=== PATIENT | male | born 1950 | race Caucasian/White ===

== ENCOUNTER 2017-06-27 13:56 | Observation (INO) | payer OTHER ==
[2017-06-27] MEDS ORDERED: NS 1,000 ML IV ONE (14:46)
[2017-06-27] MEDS ORDERED: ONDANSETRON 4 MG/2 ML VIAL IVP ONE (14:46)
--- NOTE | 2017-06-27 14:50 | EDPHY ---
H & P Stated Complaint: black tarry stool yesterday Time Seen by Provider: 06/27/17 14:39 HPI/ROS: CHIEF COMPLAINT: Black stool and lightheadedness HISTORY OF PRESENT ILLNESS: Patient is a 67-year-old man with history of Parkinson's as well as chronic back and abdominal pain on NSAIDs who comes to the emergency department complaining of black tarry stool last night . No fever. He had a post micturition syncope 2 days ago. He denies chest pain or shortness of breath. He has had a mild increase in his abdominal pain over the last week. He is not on an antacids. His primary is Dr. Pendleton and he is had a colonoscopy by Dr. Almeida. He did have a PE several years ago but only took blood thinners for 6 months. REVIEW OF SYSTEMS: Constitutional: denies: chills, fever, recent illness, recent injury EENTM: denies: blurred vision, double vision, nose congestion Respiratory: denies: cough, shortness of breath Cardiac: denies: chest pain, irregular heart rate, lightheadedness, palpitations Gastrointestinal/Abdominal: See HPI Genitourinary: denies: dysuria, frequency, hematuria, pain Musculoskeletal: See HPI Skin: denies: lesions, rash, jaundice, bruising Neurological: denies: headache, numbness, paresthesia, tingling, dizziness, weakness Hematologic/Lymphatic: denies: blood clots, easy bleeding, easy bruising Immunologic/allergic: denies: HIV/AIDS, transplant EXAM: GENERAL: Well-appearing, well-nourished and in no acute distress. HEAD: Atraumatic, normocephalic. EYES: Pupils equal round and reactive to light, extraocular movements intact, sclera anicteric, conjunctiva are normal. ENT: TMs normal, nares patent, oropharynx clear without exudates. Moist mucous membranes. NECK: Normal range of motion, supple without lymphadenopathy or JVD. LUNGS: Breath sounds clear to auscultation bilaterally and equal. No wheezes rales or rhonchi. HEART: Regular rate and rhythm without murmurs, rubs or gallops. ABDOMEN: Soft, nontender, normoactive bowel sounds. No guarding, no rebound. No masses appreciated. BACK: No CVA tenderness, no spinal tenderness, step-offs or deformities EXTREMITIES: Normal range of motion, no pitting or edema. No clubbing or cyanosis. NEUROLOGICAL: Significant tremor with intention, Cranial nerves II through XII grossly intact. Normal speech, normal gait. 5/5 strength, normal movement in all extremities, normal sensation PSYCH: Normal SKIN: Warm, dry, normal turgor, no visible rashes or lesions. Source: Patient Exam Limitations: No limitations - Personal History Tetanus Vaccine Date: >10 YRS - Medical/Surgical History Hx Asthma: No Hx Chronic Respiratory Disease: No Hx Diabetes: No Hx Cardiac Disease: No Hx Renal Disease: No Hx Cirrhosis: No Hx Alcoholism: No Hx HIV/AIDS: No Hx Splenectomy or Spleen Trauma: No Other PMH: parkinsons. chronic bk issues. PE - Family History Significant Family History: No pertinent family hx - Social History Smoking Status: Never smoked Alcohol Use: Sober Drug Use: None Constitutional: Initial Vital Signs Temperature (C) 37.0 C 06/27/17 14:01 Heart Rate 78 06/27/17 14:01 Respiratory Rate 16 06/27/17 14:01 Blood Pressure 98/70 L 06/27/17 14:01 O2 Sat (%) 98 06/27/17 14:01 O2 Delivery Mode Room Air Allergies/Adverse Reactions: phenol Allergy (Severe, Verified 06/27/17 17:38) Other-Enter Comments Gipniqm-Zxs-Mnc Reductase Inhibitor Allergy (Severe, Verified 06/27/17 17:39) Other-Enter Comments iodine [Iodine] Allergy (Intermediate, Verified 11/27/10 12:30) EAT TOO MUCH FISH, RASH (PIMPLES ON BACK) CHOCOLATE Allergy (Intermediate, Uncoded 11/27/10 12:29) PIMPLES ON BACK 2 DAYS AFTER EATING Home Medications: Medication Instructions Recorded Aspirin EC [Aspirin EC 81 mg (*)] 81 mg PO DAILY@1200 06/27/17 Baclofen [Baclofen 20 mg (*)] 20 mg PO 08,12,21 06/27/17 Carbidopa/Levodopa 25/100Mg 1 tab PO TID PRN 06/27/17 [Sinemet 25/100 MG (*)] Carbidopa/Levodopa [Rytary ER 1 - 2 each PO HS PRN 06/27/17 48.75 mg-195 mg Cap] Carbidopa/Levodopa [Rytary ER 2 each PO DAILY@1900 06/27/17 48.75 mg-195 mg Cap] Carbidopa/Levodopa [Rytary ER 3 each PO 0630,1100,1530 06/27/17 48.75 mg-195 mg Cap] Cholecalciferol Vit D3 [Vitamin D3 5,000 units PO DAILY 06/27/17 (*)] Dicyclomine [Bentyl 10 MG (*)] 10 mg PO QID PRN 06/27/17 Gabapentin [Neurontin 300 MG (*)] 300 - 600 mg PO HS 06/27/17 Gabapentin [Neurontin 300 MG (*)] 300 mg PO 08,12 06/27/17 Herbals/Supplements -Info Only 1 ea PO DAILY 06/27/17 Ibuprofen [Motrin (*)] 200 - 600 mg PO HS PRN 06/27/17 Lidocaine [Lidocare] 1 each TP DAILY 06/27/17 Linaclotide [Linzess] 290 mcg PO DAILY 06/27/17 Meloxicam 15 mg PO DAILY 06/27/17 Niacin [Niacin 500 mg (*)] 1,000 mg PO DAILY@1200 06/27/17 Niacin [Niacin 500 mg (*)] 500 mg PO 08,18 06/27/17 [place]-3 Fatty Acids [Fish Oil 1000 1,000 mg PO 08,18 06/27/17 mg (*)] [place]-3 Fatty Acids [Fish Oil 1000 2,000 mg PO DAILY@1200 06/27/17 mg (*)] Polyethylene Glycol 3350 [Miralax 8.5 - 34 gm PO DAILY PRN 06/27/17 17 gm (*)] Propylene Glycol/Peg 400 [Systane 1 - 2 drops OP Q2 PRN 06/27/17 Ultra 0.4-0.3% Eye Drp] Rotigotine [Neupro] 1 patch TP DAILY@22006/27/17 clonazePAM [Klonopin (*)] 0.25 mg PO 08,21 06/27/17 Medical Decision Making - Diagnostics EKG Interpretation: An EKG obtained and was read and documented in trace view. Please see trace view for full reading and report. Sinus rhythm, no acute ischemic changes ED Course/Re-evaluation: 3:20 p.m. we discussed the lab results. Patient is significantly anemic. He is no longer lightheaded after IV fluids. He has been typed and crossed and been started on Protonix. 3:30 a.m. I discussed the case with Dr. Ramírez who will admit the medical service. I will also page is gastrologist. 4:30 p.m. I discussed the case with Dr. Roberth Brizuela who will text the gastrologist on-call here to notify to consult. Differential Diagnosis: Partial list of the Differential diagnosis considered include but were not limited to; peptic ulcer disease, upper GI bleed and although unlikely based on the history and physical exam, I also considered lower GI bleed, hemorrhoid, perforation, ischemia. Critical Care Time: Critical care time spent by me, Dr. Medina exclusive with this patient was 35 minutes, exclusive of the PA time exclusive of procedures. The organ system that was at risk was gastrointestinal and I gave IV fluids, type and cross, consultation and admission to prevent worsening of the patient's condition - Data Points Laboratory Results: Laboratory Results 06/27/17 14:53 06/27/17 14:50 06/27/17 06/27/17 06/27/17 15:00 14:53 14:53 WBC 4.55 10^3/uL 10^3/uL (3.80-9.50) RBC 3.79 10^6/uL L 10^6/uL (4.40-6.38) Hgb 13.0 g/dL L g/dL (13.7-17.5) Hct 36.5 % L % (40.0-51.0) MCV 96.3 fL fL (81.5-99.8) MCH 34.3 pg H pg (27.9-34.1) MCHC 35.6 g/dL g/dL (32.4-36.7) RDW 11.9 % % (11.5-15.2) Plt Count 188 10^3/uL 10^3/uL (150-400) MPV 9.2 fL fL (8.7-11.7) Neut % (Auto) 55.2 % % (39.3-74.2) Lymph % (Auto) 29.2 % % (15.0-45.0) [place] % (Auto) 9.9 % % (4.5-13.0) Eos % (Auto) 4.6 % % (0.6-7.6) Baso % (Auto) 0.7 % % (0.3-1.7) Nucleat RBC Rel Count 0.0 % % (0.0-0.2) Absolute Neuts (auto) 2.51 10^3/uL 10^3/uL (1.70-6.50) Absolute Lymphs (auto) 1.33 10^3/uL 10^3/uL (1.00-3.00) Absolute Monos (auto) 0.45 10^3/uL 10^3/uL (0.30-0.80) Absolute Eos (auto) 0.21 10^3/uL 10^3/uL (0.03-0.40) Absolute Basos (auto) 0.03 10^3/uL 10^3/uL (0.02-0.10) Absolute Nucleated RBC 0.00 10^3/uL 10^3/uL (0-0.01) Immature Gran % 0.4 % % (0.0-1.1) Immature Gran # 0.02 10^3/uL 10^3/uL (0.00-0.10) PT 14.4 SEC SEC (12.0-15.0) INR 1.10 (0.83-1.16) APTT 29.7 SEC SEC (23.0-38.0) Sodium Potassium Chloride Carbon Dioxide Anion Gap BUN Creatinine Estimated GFR Glucose Calcium Total Bilirubin Conjugated Bilirubin Unconjugated Bilirubin AST ALT Alkaline Phosphatase Total Protein Albumin Lipase Stool Occult Bld Scrn Patient ABO/Rh O POSITIVE Antibody Screen NEGATIVE 06/27/17 06/27/17 14:50 14:50 WBC RBC Hgb Hct MCV MCH MCHC RDW Plt Count MPV Neut % (Auto) Lymph % (Auto) [place] % (Auto) Eos % (Auto) Baso % (Auto) Nucleat RBC Rel Count Absolute Neuts (auto) Absolute Lymphs (auto) Absolute Monos (auto) Absolute Eos (auto) Absolute Basos (auto) Absolute Nucleated RBC Immature Gran % Immature Gran # PT INR APTT Sodium 140 mEq/L mEq/L (135-145) Potassium 4.4 mEq/L mEq/L (3.5-5.2) Chloride 98 mEq/L mEq/L (97-110) Carbon Dioxide 29 mEq/l mEq/l (22-31) Anion Gap 13 mEq/L mEq/L (8-16) BUN 24 mg/dL H mg/dL (7-23) Creatinine 0.7 mg/dL mg/dL (0.7-1.3) Estimated GFR > 60 Glucose 86 mg/dL mg/dL (70-100) Calcium 9.2 mg/dL mg/dL (8.5-10.4) Total Bilirubin 0.8 mg/dL mg/dL (0.1-1.4) Conjugated Bilirubin 0.5 mg/dL mg/dL (0.0-0.5) Unconjugated Bilirubin 0.3 mg/dL mg/dL (0.0-1.1) AST 29 IU/L IU/L (17-59) ALT 23 IU/L IU/L (21-72) Alkaline Phosphatase 68 IU/L IU/L (38-126) Total Protein 6.6 g/dL g/dL (6.3-8.2) Albumin 3.8 g/dL g/dL (3.5-5.0) Lipase 211 IU/L IU/L (23-300) Stool Occult Bld Scrn POSITIVE H (NEGATIVE) Patient ABO/Rh Antibody Screen Medications Given: Discontinued Medications Sodium Chloride (Ns) 1,000 mls @ 0 mls/hr IV EDNOW ONE; Wide Open PRN Reason: Protocol Stop: 06/27/17 14:47 Last Admin: 06/27/17 14:55 Dose: 1,000 mls Ondansetron HCl (Zofran) 4 mg IVP EDNOW ONE Stop: 06/27/17 14:47 Last Admin: 06/27/17 14:55 Dose: 4 mg Departure - Departure Disposition: Home, Routine, Self-Care Clinical Impression: Upper GI bleed Condition: Fair
--- NOTE | 2017-06-27 15:03 | CPEKG ---
Heart Rate: 78 RR Interval: 769 P-R Interval: 148 QRSD Interval: 90 QT Interval: 356 QTC Interval: 406 P [place]: 72 QRS [place]: 79 T Wave [place]: 66 EKG Severity - NORMAL ECG - EKG Impression: SINUS RHYTHM Electronically Signed By: Brendan Medina 27-Jun-2017 15:05:00
[2017-06-27 15:13] LABS: PLATELET COUNT 188 10^3/uL (150-400)
[2017-06-27 15:17] LABS: INR 1.1 (0.83-1.16); PROTIME(PATIENT) 14.4 SEC (12.0-15.0)
[2017-06-27] MEDS ORDERED: ONDANSETRON DISINTEGRATING 4 MG TAB PO PRN (15:38)
[2017-06-27] MEDS ORDERED: ACETAMINOPHEN 325 MG TAB PO PRN (15:38)
[2017-06-27] MEDS ORDERED: ONDANSETRON 4 MG/2 ML VIAL IVP PRN (15:38)
[2017-06-27] MEDS ORDERED: NS 1,000 ML IV SCH (15:45)
[2017-06-27] MEDS ORDERED: HYDROCODONE/APAP 5/325 TAB PO PRN (16:43)
--- NOTE | 2017-06-27 17:40 | GHP ---
[f rep st] HISTORY AND PHYSICAL DATE OF ADMISSION: 06/27/2017 CHIEF COMPLAINT: Syncope and melena. HISTORY OF PRESENT ILLNESS: This is a 67-year-old male with a history of Parkinson's who presents wi th complaints of melena, which began the day prior to presentation, as well as a syncopal episode aft er using the restroom 2 evenings prior to presentation. Patient reports being in his normal state of health prior to 48 hours before presentation to the emergency department when he described using the restroom in the evening and after finishing using the restroom losing consciousness entirely. The p atient fell. Denies hitting his head. Has some bruising on the palm of his hand, but otherwise no i njuries. The patient came to, was not postictal and then did not have a recurrent episode. Did noti ce some overall weakness and lethargy in the next day. He then experienced 3 episodes of dark black tarry stools and was feeling lightheaded, checked his blood pressure at the time and noted his systol ics to be in the 70s. Therefore, decided to present to the emergency department for evaluation. In the evening, patient reports that his dizziness is improving status post receiving IV fluids. He adryan es any palpitations. Denies chest pain, denies shortness of breath. Denies any melena stools today. Says his last dark stool was yesterday. Denies diarrhea. Denies abdominal pain. Denies nausea or vomiting. He did have 1 episode of burning reflux type pain in the week preceding his presentation. He reports that is not a normal symptom for him. He experienced after taking many of his over-the- counter supplements. The patient denies any previous episodes of melena or GI bleeding. Denies any dysuria. Denies hematuria. Denies rashes. Reports that his son has a viral illness that he was exp osed to in the last week. He had subjective fevers and chills, which has since resolved. PAST MEDICAL HISTORY: 1. Parkinson's, on medication. 2. Hyperlipidemia. 3. Hypertension. 4. Chronic back pain with recent back surgery. 5. History of pulmonary embolism bilateral in 2012, status post completion of his anticoagulant linda tment. 6. History is negative for tobacco, very rare alcohol. No illicit drugs or marijuana. FAMILY HISTORY: Negative for Parkinson's. ADVANCED DIRECTIVES: Patient is full COR, full tube. His would be his medical decision maker. REVIEW OF SYSTEMS: A 10-point review of systems is negative with the exception of reported in the HP I. PHYSICAL EXAMINATION: VITAL SIGNS: Systolic blood pressure 90/62, heart rate in the 80s, respiratory rate 12, saturating 95% on room air. Afebrile. GENERAL: This is a tall, thin appearing male in no a cute distress. HEENT: Notable for dry mucous membranes. Eye exam is negative for any icterus. CARD IOVASCULAR: Patient is regular rate and rhythm. PULMONARY: Good respiratory effort. Clear to auscu ltation bilaterally. GASTROINTESTINAL: Positive bowel sounds. Abdomen is thin and soft. He is ten hardeep to palpation in the lower quadrant, left greater than right. No rebound or guarding. No appreci able epigastric discomfort. MUSCULOSKELETAL: Negative for any lower extremity edema. SKIN: Exam is negative for any rashes. NEUROLOGIC: He is alert and oriented x3. There is a baseline tremor appre ciated on examination. PSYCHIATRIC: He is pleasant cooperative on interview and examination. DATA: Hemoglobin is 13. BMP is normal. Telemetry which I personally reviewed and interpreted, show s sinus rhythm without acute changes. INR is 1.1. ASSESSMENT AND PLAN: This is a 67-year-old male with Parkinson's, presenting with melena. 1. Acute GI bleed. Suspect origin based on the patient's history. He does use p.r.n. NSAIDs for ch ronic back pain and did have recent symptoms of gastritis, although transient. Patient has not had r ecurrent melena today. We will admit the patient to continue fluid resuscitation. He has been typed and screened in the emergency department. Will not recheck counts unless he has increased bleeding overnight. Otherwise, will order to the a.m. He will be n.p.o. after midnight in anticip ation of EGD. We have initiated a pantoprazole drip and will monitor the patient's progress overnigh t. Gastroenterology has been consulted from the emergency department. 2. Anemia secondary to acute blood loss. I suspect will see even more drop in patient's hemoglobin after fluid resuscitation. We will recheck in the morning. He does not meet transfusion threshold a t this time with a hemoglobin of 13. 3. Parkinson's. Will continue patient's carbidopa levodopa once reconciled. 4. History of hypertension. We will hold his outpatient medication. 5. Hyperlipidemia. We will hold his statin therapy. Prophylaxis is contraindicated in the setting of acute gastrointestinal bleed. 6. Diet: Clear liquids, n.p.o. after midnight. DISPOSITION: I expect in less than 2 midnights if the patient remains stable and the EGD is normal. I have discussed the case with the emergency room physician. Patient will be triaged to the medical -surgical floor for care. /[id number]/MODL
[2017-06-27] MEDS ORDERED: CARBIDOPA/LEVODOPA 25 MG/100 MG TAB PO PRN (18:05)
--- NOTE | 2017-06-27 22:02 | GCON ---
[f rep st] CONSULTATION DATE OF CONSULTATION: 06/27/2017 REFERRING PHYSICIAN: Lucy Lucero MD CHIEF COMPLAINT: Syncopal episode followed by melena. HISTORY OF PRESENT ILLNESS: The patient is a 67-year-old gentleman followed by Dr. Pendleton for [place] son disease, hypertension, hyperlipidemia, and chronic back pain on chronic NSAID therapy who was adm itted to the hospital today after a syncopal episode 2 evenings ago, followed by several black tarry stools. He has had no bowel movement for the last 24 hours. He denied hitting his head with the syn copal episode. He did come to the emergency room for overall weakness and lethargy and the passage o f black tarry stools. He was noted in the emergency room to have a hemoglobin of 13 and he was admit delroy to observation for further GI workup. Patient has no prior history of peptic ulcer disease. He does have a history of an EGD and total colonoscopy performed by Dr. Gabe Stewart in 2014. He was not ed to have H pylori gastritis on biopsy and treated with 2 weeks of triple antibiotic therapy. He wa s also noted to have several small polyps removed. MEDICATIONS: Prior to admission included enteric-coated aspirin 81 mg daily, baclofen 20 mg p.o. q.a .m., noon and 9:00 p.m., carbidopa/levodopa 25/100 mg 1 tablet p.o. three times daily p.r.n., carbido pa/levodopa ER 48.75 mg/195 mg cap 1-2 caps p.o. at bedtime p.r.n., levodopa/carbidopa 48.75 mg/195 m g cap 2 p.o. q. 7 p.m., carbidopa/levodopa 48.75 mg/195 mg 3 tabs p.o. q. 6:30 a.m., 11 a.m., and 3:3 0 p.m., coli calciferol, vitamin D3 5000 units p.o. daily, Bentyl 10 mg p.o. four times daily p.r.n. abdominal cramping, Neurontin 300 mg 1-2 tabs p.o. at bedtime, Neurontin 300 mg p.o. q. 8 a.m. and no on, ibuprofen 200-600 mg p.r.n. back pain at night, lidocaine patch transdermal daily, Linzess 290 mc g p.o. daily, meloxicam 15 mg p.o. daily, niacin 1000 mg p.o. q. noon, and niacin 500 mg p.o. q. 8 a. m. and 6 p.m. ALLERGIES: Phenol, statins, iodine, chocolate. PAST MEDICAL HISTORY: Significant for Parkinson disease, hyperlipidemia, hypertension, chronic back pain on chronic NSAIDs, history of pulmonary emboli bilaterally in 2013 with status post anticoagulat ion therapy with completion of same. FAMILY HISTORY: Positive for Parkinson's. Negative for GI malignancies or peptic ulcer disease. SOCIAL HISTORY: He resides in [place] with his . He is retired. He does not smoke tobacco or d rink alcohol. REVIEW OF SYSTEMS: Other than melena and chronic back pain and movement disorder related to Parkinso n's, negative for comprehensive review of systems. PHYSICAL EXAMINATION: VITAL SIGNS: Temperature is 36.7 Celsius, pulse 93 regular, blood pressure 13 7/72, respiratory rate is 17, O2 saturation 97% on room air. GENERAL: The patient is a well-developed and well-nourished male, lying in bed, no apparent distress . INTEGUMENT: Clear. HEENT: Head atraumatic, normocephalic. Pupils equal, round, reactive to light. EOMs were intact. Sclerae nonicteric. Nares patent. Mucous membranes moist. Dentition good. NECK: Supple. Trachea was midline. LYMPHATICS: There is no cervical or axillary adenopathy palpated. PULMONARY: Clear to percussion and auscultation. CARDIOVASCULAR: Regular rhythm and rate. Normal S1, S2 without murmur. Peripheral pulses strong bi laterally. No pedal edema. GASTROINTESTINAL: Abdomen is supple. Positive bowel sounds. No liver or spleen tip palpable. No m asses or tenderness noted. No fluid wave noted. EXTREMITIES: Without deformity. NEUROLOGIC: Patient is alert and oriented x3. There are no focal neurologic deficits. LABS: White count 4.55, hemoglobin 13.0, hematocrit 36.5, platelets 188,000. Pro time 14.4, INR 1.1 0, PTT 29.7. Electrolytes normal. BUN 24, creatinine 0.7. LFTs normal. Urinalysis negative. IMPRESSION: 1. A 67-year-old gentleman with Parkinson disease and chronic back pain on chronic nonsteroidal anti -inflammatory drugs, now with recent episode of syncope followed by melena and mild anemia, rule out peptic ulcer disease. 2. Hyperlipidemia. 3. Hypertension. 4. Chronic back pain. 5. History of pulmonary emboli (remote), off anticoagulation. 6. Chronic constipation likely secondary to Parkinson's. RECOMMENDATIONS: 1. Clear liquid diet tonight. 2. Protonix 40 mg IV q.6. 3. N.p.o. after midnight. 4. Esophagogastroduodenoscopy in the a.m. /[id number]/MODL
[2017-06-27] MEDS: PANTOPRAZOLE SODIUM 40 MG VIAL IVP SCH (22:14)
[2017-06-27] MEDS ORDERED: BACLOFEN 20 MG TAB PO SCH (22:15)
[2017-06-27] MEDS ORDERED: clonazePAM 0.5 MG TAB PO SCH (22:15)
[2017-06-28] MEDS: PANTOPRAZOLE SODIUM 40 MG VIAL IVP SCH ×2 (03:08→08:00)
[2017-06-28 04:56] LABS: PLATELET COUNT 160 10^3/uL (150-400)
[2017-06-28] MEDS ORDERED: PEG OP PRN (08:14)
[2017-06-28] MEDS ORDERED: clonazePAM 0.5 MG TAB PO SCH (08:14)
[2017-06-28] MEDS ORDERED: PROPYLENE GLYCOL OP PRN (08:14)
[2017-06-28] MEDS ORDERED: LIDOCAINE 4%/MENTHOL 1% PATCH TD SCH (09:00)
[2017-06-28] MEDS: BACLOFEN 20 MG TAB PO SCH ×2 (09:50→15:11)
[2017-06-28] MEDS: GABAPENTIN 300 MG CAP PO SCH ×2 (09:50→15:11)
[2017-06-28] MEDS ORDERED: HYDROmorphONE/DILAUDID 1 MG/ML INJ IVP PRN (11:57)
[2017-06-28] MEDS ORDERED: NALOXONE HCL 0.4 MG/ML INJ IVP PRN (11:57)
[2017-06-28] MEDS ORDERED: fentaNYL 100 MCG/2 ML INJ IVP PRN (11:57)
[2017-06-28] MEDS ORDERED: ONDANSETRON 4 MG/2 ML VIAL IVP PRN (11:57)
[2017-06-28] MEDS ORDERED: ALBUTEROL 3 ML DEYVIAL IH PRN (11:57)
[2017-06-28] MEDS ORDERED: DEXAMETHASONE 4 MG/ML VIAL IVP PRN (11:57)
--- NOTE | 2017-06-28 11:57 | PDANEPAE ---
ANE History of Present Illness EGD for Upper GI Bleed ANE Past Medical History - Cardiovascular History Hx Hypertension: Yes Hx Arrhythmias: No - Pulmonary History Hx Oxygen in Use at Home: No Hx Sleep Apnea: Yes - Endocrine History Hx Diabetes: No - Chronic Pain History Chronic Pain: Yes ANE Review of Systems Review of systems is: negative Review of Systems: - Exercise capacity METS (RN): 4 METS ANE Patient History - Allergies Allergies/Adverse Reactions: phenol Allergy (Severe, Verified 06/27/17 17:38) Other-Enter Comments Psmebfv-Uuu-Ogm Reductase Inhibitor Allergy (Severe, Verified 06/27/17 17:39) Other-Enter Comments iodine [Iodine] Allergy (Intermediate, Verified 11/27/10 12:30) EAT TOO MUCH FISH, RASH (PIMPLES ON BACK) CHOCOLATE Allergy (Intermediate, Uncoded 11/27/10 12:29) PIMPLES ON BACK 2 DAYS AFTER EATING - Home Medications Home Medications: Aspirin EC [Aspirin EC 81 mg (*)] 81 mg PO DAILY@1200 06/27/17 [Last Taken 06/27] Baclofen [Baclofen 20 mg (*)] 20 mg PO 08,12,21 06/27/17 [Last Taken 06/27/17 12 :00] Carbidopa/Levodopa 25/100Mg [Sinemet 25/100 MG (*)] 1 tab PO TID PRN 06/27/17 [ Last Taken Unknown] Carbidopa/Levodopa [Rytary ER 48.75 mg-195 mg Cap] 1 - 2 each PO HS PRN [Last Taken Unknown] Carbidopa/Levodopa [Rytary ER 48.75 mg-195 mg Cap] 2 each PO DAILY@1900 [Last Taken 06/26/17] Carbidopa/Levodopa [Rytary ER 48.75 mg-195 mg Cap] 3 each PO 0630,1100,1530 [Last Taken 06/27/17 11:30] Cholecalciferol Vit D3 [Vitamin D3 (*)] 5,000 units PO DAILY 06/27/17 [Last Taken 06/27/17] Dicyclomine [Bentyl 10 MG (*)] 10 mg PO QID PRN 06/27/17 [Last Taken Unknown] Gabapentin [Neurontin 300 MG (*)] 300 - 600 mg PO HS 06/27/17 [Last Taken ] Gabapentin [Neurontin 300 MG (*)] 300 mg PO 06/27/17 [Last Taken 06/27/17 12:00] Herbals/Supplements -Info Only 1 ea PO DAILY 06/27/17 [Last Taken Unknown] Ibuprofen [Motrin (*)] 200 - 600 mg PO HS PRN 06/27/17 [Last Taken 06/25/17] Lidocaine [Lidocare] 1 each TP DAILY 06/27/17 [Last Taken 06/24/17] Linaclotide [Linzess] 290 mcg PO DAILY 06/27/17 [Last Taken 06/26/17] Meloxicam 15 mg PO DAILY 06/27/17 [Last Taken 06/27/17] Niacin [Niacin 500 mg (*)] 1,000 mg PO DAILY@119906/27/17 [Last Taken Unknown] Niacin [Niacin 500 mg (*)] 500 mg PO 06/27/17 [Last Taken Unknown] [place]-3 Fatty Acids [Fish Oil 1000 mg (*)] 1,000 mg PO 06/27/17 [Last Taken Unknown] [place]-3 Fatty Acids [Fish Oil 1000 mg (*)] 2,000 mg PO DAILY@119906/27/17 [ Last Taken Unknown] Polyethylene Glycol 3350 [Miralax 17 gm (*)] 8.5 - 34 gm PO DAILY PRN 06/27/17 [ Last Taken 06/26/17] Propylene Glycol/Peg 400 [Systane Ultra 0.4-0.3% Eye Drp] 1 - 2 drops OP Q2 PRN 06/27/17 [Last Taken Unknown] Rotigotine [Neupro] 1 patch TP DAILY@219906/27/17 [Last Taken 06/26/17] clonazePAM [Klonopin (*)] 0.25 mg PO 06/27/17 [Last Taken 06/27/17 08:00] - Smoking Hx Smoking Status: Never smoked - Alcohol Use Alcohol Use: Sober ANE Labs/Vital Signs - Labs Result Diagrams: 06/28/17 03:58 06/27/17 14:50 - Vital Signs Blood Pressure: 138/69 Heart Rate: 72 Respiratory Rate: 17 O2 Sat (%): 96 Height: 189.23 cm Weight: 74.253 kg ANE Physical Exam - Airway Neck exam: FROM Mallampati Score: Class 2 - Pulmonary Pulmonary: clear to auscultation - Cardiovascular Cardiovascular: regular rate and rhythym - ASA Status ASA Status: III, E ANE Anesthesia Plan Anesthesia Plan: GA with mask
[2017-06-28] MEDS ORDERED: LR 1,000 ML IV ONE (12:00)
[2017-06-28] MEDS ORDERED: PROPOFOL/EMULSION 500 MG/50 ML BOTTLE IV ONE (12:11)
[2017-06-28] MEDS ORDERED: LIDOCAINE 2% 5 ML SDV ONE (12:12)
--- NOTE | 2017-06-28 12:56 | POSTANESTH ---
Post Anesthetic Evaluation Cardiovascular Status: Normal, Stable Respiratory Status: Normal, Stable Level of Consciousness/Mental Status: Can Participate in Eval, Mildly Sleepy, Arousable Pain Control: Adequate, Prn Tx Ordered Nausea/Vomiting Control: Adequate, Prn Tx Ordered Complications Possibly Related to Anesthesia: None Noted
--- NOTE | 2017-06-28 13:07 | POSTOPPROG ---
Post Op Note Date of Operation: 06/28/17 Surgeon: Dimitris Suazo Stonemason Helper: none Anesthesiologist: Jonel Drake MD Anesthesia: Other (Specify) (IV General) Pre-op Diagnosis: Melena Post-op Diagnosis: 1. Same. 2. Antral ulcer without active bleed. Indication: Melena Procedure: EGD with gastric biopsy. Findings: 12mm antral ulcer without stigmata of active bleed. Inf/Abcess present in the surg proc area at time of surgery?: No Depth: Superfical (Skin SQ) EBL: Minimal Total fluids administered: none. Complications: None. Specimen(s): Random gastric biopsies obtained to r/o H. pylori gastritis.
[2017-06-28 13:10] VITALS: O2SAT 98
[2017-06-28] MEDS ORDERED: fentaNYL 100 MCG/2 ML INJ ONE (13:12)
[2017-06-28 13:16] VITALS: BP 115/63
[2017-06-28 13:28] VITALS: RESP 16; TEMP 97.3
[2017-06-28 13:55] VITALS: PULSE 69
--- NOTE | 2017-06-28 16:20 | ASMTLACE ---
LACE Length of stay for Answers: Less than 1 day current admission Acuity / Level of Answers: No Care: Did the patient have an inpatient admission? Comorbidities - select Answers: Other Notes: Parkinsons, hyperlipide jovany all that apply , HTN, chronic back pain, h/o PE # of Emergency department Answers: 0 visits in the last 6 months Score: 1 Date Signed: 06/28/2017 04:19 PM Electronically Signed By:Jeanine Casas RN
--- NOTE | 2017-06-28 16:24 | ASDISCHSUM ---
Discharge Information Plan Status:Home with No Needs Medically Cleared to Leave:06/28/2017 Discharge Date:06/28/2017 CM D/C Disposition:Home, Routine, Self-Care ADT D/C Disposition:Home, Routine, Self-Care Projected Discharge Date:06/28/2017 Transportation at D/C:Family Discharge Delay Reason: Follow-Up Date:06/28/2017 Discharge Slot: Final Diagnosis: Placement Information Patient Contact Information Contact Name:ABDIEL Relationship: Address:[address] City:[place] Alternate Phone: [facility]/Zip Code:[place] [address] Email: Financial Information Financial Class:HMO and PPO Plans Primary Plan Desc:[facility] PPO POS Primary Plan Number:[id number] Secondary Plan Desc: Secondary Plan Number: Assessment Information LACE LACE Length of stay for Answers: Less than 1 day current admission Acuity / Level of Answers: No Care: Did the patient have an inpatient admission? Comorbidities - select Answers: Other Notes: Parkinsons, hyperlipide jovany all that apply , HTN, chronic back pain, h/o PE # of Emergency department Answers: 0 visits in the last 6 months Score: 1 Date Signed: 06/28/2017 04:19 PM Electronically Signed By:Jeanine Casas RN Case Management Discharge Plan Note Case Management Discharge Discharge Order Complete? Answers: Yes Patient to Obtain Answers: Independently Medications Transportation Arranged Answers: Family/Friends Family Notified Answers: Yes Notes: in room Discharge Comments Notes: 06/28/2017 Case Management Note Met pt and the following family members: Jeanette [phone] Daughter Kisha [phone] who attends [facility] Son Abraham [phone] Referred pt to Financial Counseling for questions regarding billing. Provided business card. Pt did not have any d/c case management needs. Case Management d/c poc: home independent with family support. Date Signed: 06/28/2017 04:22 PM Electronically Signed By:Jeanine Casas RN Intervention Information
--- NOTE | 2017-06-28 17:25 | GDS ---
[f rep st] DISCHARGE SUMMARY DISCHARGE DIAGNOSES: Include: 1. Acute upper gastrointestinal bleed secondary to antral ulceration. 2. Anemia secondary to acute blood loss. 3. Hypotension secondary to gastrointestinal bleed. 4. Syncopal episode secondary to hypovolemia. 5. Parkinson. HISTORY OF PRESENT ILLNESS: This is a 67-year-old male, with a history of Parkinson and hypertension treated with medication, who presents with an episode of melena and syncope. For details of the leticia vasquez's initial presentation, please see the history and physical dated 06/27/2017. CONSULTATIVE SERVICES: Include Gastroenterology. PROCEDURES: 06/28/2017, patient had an EGD that showed antral ulceration. Status post biopsy for H pylori. HOSPITAL COURSE BY ISSUE: 1. Acute upper GI bleed. Patient presented with melena, a drop in his H and H, and symptoms consist ent with acute GI. He was admitted, fluid resuscitated, started on IV PPI, and taken for EGD which c onfirmed the presence of a large antral ulceration. Patient will be discharged on p.o. b.i.d. proton pump inhibitor, with followup with GI for his gastric biopsies, as well as for potential re-scoping if his H pylori is negative. 2. Anemia secondary to acute blood loss. Patient did drop his hemoglobin and hematocrit. However, hemoglobin after fluid resuscitation the morning after admission is 10, not requiring transfusion. I expect, with the treatment of the above ulceration, patient will have normalization of his H and H i n the next several weeks. 3. Syncope secondary to hypovolemia and GI bleed. Patient did present with hypotension deemed secon arnie to his acute bleeding episode and concurrent compliant use of antihypertensives. His blood pres sures have rebounded back to normal. He can resume his home medication without complication. 4. Parkinson. Patient will be continued on his home medications without alteration. MEDICATIONS AT THE TIME OF TRANSFER: Please reference the med rec printed on the 06/28/2017. APPOINTMENTS: 1. Include with [facility] for review of biopsy results and potential re-scoping if necessary . 2. With the primary care provider for ongoing management of his medical comorbidities. PENDING STUDIES: At the time of this dictation include gastric biopsies which will be followed by [facility]. I spent greater than 30 minutes in the planning and coordination of this discharge. /[id number]/MODL
[2017-06-28] MEDS ORDERED: PANTOPRAZOLE SODIUM 40 MG TAB PO SCH (21:00)
[2017-06-28] MEDS ORDERED: GABAPENTIN 300 MG CAP PO SCH (21:00)
[2017-06-28] MEDS ORDERED: PATCH REMOVAL 1 EA PATCH TD SCH (21:00)
[2017-06-28] MEDS ORDERED: Rotigotine [Neupro] 1 PATCH TP SCH (22:00)
--- NOTE | 2017-06-29 13:57 | GIREPORT ---
[facility] Surgical Services - Endoscopy Department Patient Name: Sorin Burciaga Procedure Date: 06/28/2017 12:02 PM Patient Type: Inpatient Attending MD/ ER Physician: Dimitris Suazo MD Procedure: Upper GI endoscopy Indications: Melena, Acute post hemorrhagic anemia Providers: Dimitris Suazo MD Medicines: General Anesthesia Complications: No immediate complications. Description of Procedure: After obtaining informed consent, the endoscope was passed under direct vision. Throughout the procedure, the patient's blood pressure, pulse, and oxygen saturations were monitored continuously. The Endoscope was intro duced through the mouth, and advanced to the second part of duodenum. [facility]oscopy was accomplished without difficulty. The patient tolerated th e procedure well. Findings: The examined esophagus was normal. One non-bleeding cratered gastric ulcer with no stigmata of bleeding wa s found in the gastric antrum. The lesion was 12 mm in largest dimension. The cardia, gastric fundus and gastric body were normal. Biopsies were taken with a cold forceps for histology. The examined duodenum was normal. Estimated Blood Loss: Estimated blood loss: none. Post Op Diagnosis: - Normal esophagus. - Non-bleeding gastric ulcer with no stigmata of bleeding. - Normal cardia, gastric fundus and gastric body. Biopsied. - Normal examined duodenum. Recommendation: - Return patient to [facility] for possible discharge same day. - Advance diet as tolerated today. - Continue present medications. - Use Protonix (pantoprazole) 40 mg PO BID for 2 months. - Await pathology results. - Repeat upper endoscopy in 2 months to check healing. Attending Participation: I personally performed the entire procedure. Dimitris Suazo MD Dimitris Suazo MD 06/29/2017 1:57:24 PM This report has been signed electronicallyDimitris Suazo MD Number of Addenda: 0 Note Initiated On: 06/28/2017 12:02 PM [email or web address]}
== END 2017-06-28 17:26 | disposition home or self-care (01) ==
LOC: OBSVTOIN 15:35 → INTOOBSV 15:35 → F1N 16:43
PROVIDERS: ADMIT Internal Medicine; ATTEND Hospitalist
PROC: 0DB68ZX Excision of Stomach, Via Natural or Artificial Opening Endoscopic, Diagnostic (ICD-10-PCS; principal; 2017-06-27)
DX: K92.2 Gastrointestinal hemorrhage, unspecified (principal); K25.9 Gastric ulcer, unspecified as acute or chronic, without hemorrhage or perforation; D62 Acute posthemorrhagic anemia; R55 Syncope and collapse; K92.1 Melena; I95.9 Hypotension, unspecified; E86.1 Hypovolemia; G20 Parkinson's disease; I10 Essential (primary) hypertension; E78.5 Hyperlipidemia, unspecified; G89.29 Other chronic pain; Z79.1 Long term (current) use of non-steroidal anti-inflammatories (NSAID); Z86.711 Personal history of pulmonary embolism
CPT/HCPCS: 43239; 93005; 96374; 97166; 99291; G0378; G8987; G8988; J0171; J2405; J2704; J3010

== ENCOUNTER 2017-06-30 19:59 | Observation (INO) | payer OTHER ==
[2017-06-30] MEDS ORDERED: ONDANSETRON 4 MG/2 ML VIAL IVP ONE (20:27)
[2017-06-30] MEDS ORDERED: NS 1,000 ML IV ONE ×2 (20:27→21:47)
--- NOTE | 2017-06-30 20:28 | EDPHY ---
H & P Stated Complaint: ORR, dizziness Time Seen by Provider: 06/30/17 20:13 HPI/ROS: CHIEF COMPLAINT: Headache, lightheadedness HISTORY OF PRESENT ILLNESS: Patient is a 67-year-old man with history of Parkinson's who I admitted to the hospital last week for GI bleed who returns now to the ER complaining that he feels lightheaded and has a headache. The symptoms gradually progressed over the last 3 hr. He was sitting on the couch watching TV when they began. He denies trauma. He denies chest pain or shortness of breath. He denies abdominal pain. While in the hospital he had an upper endoscopy that revealed a gastric ulcer. He has been on proton pump inhibitor ever since and told his this morning that he was feeling better than he had in a long time. No vomiting. No fever. He does not take blood thinners. He did feel cold. Also states that he has not had a bowel movement since before his upper endoscopy. REVIEW OF SYSTEMS: Constitutional: See HPI EENTM: denies: blurred vision, double vision, nose congestion Respiratory: denies: cough, shortness of breath Cardiac: denies: chest pain, irregular heart rate, lightheadedness, palpitations Gastrointestinal/Abdominal: denies: abdominal pain, diarrhea, nausea, vomiting, blood streaked stools Genitourinary: denies: dysuria, frequency, hematuria, pain Musculoskeletal: denies: joint pain, muscle pain Skin: denies: lesions, rash, jaundice, bruising Neurological: See HPI denies: numbness, paresthesia, tingling, dizziness, weakness Hematologic/Lymphatic: denies: blood clots, easy bleeding, easy bruising Immunologic/allergic: denies: HIV/AIDS, transplant EXAM: GENERAL: Moderate distress HEAD: Atraumatic, normocephalic. EYES: Keeps his eyes closed but can open them voluntarily, no nystagmus, Pupils equal round and reactive to light, extraocular movements intact, sclera anicteric, conjunctiva are normal. ENT: TMs normal, nares patent, oropharynx clear without exudates. Moist mucous membranes. NECK: Normal range of motion, supple without lymphadenopathy or JVD. LUNGS: Breath sounds clear to auscultation bilaterally and equal. No wheezes rales or rhonchi. HEART: Regular rate and rhythm without murmurs, rubs or gallops. ABDOMEN: Soft, nontender, normoactive bowel sounds. No guarding, no rebound. No masses appreciated. BACK: No CVA tenderness, no spinal tenderness, step-offs or deformities EXTREMITIES: Normal range of motion, no pitting or edema. No clubbing or cyanosis. NEUROLOGICAL: Cranial nerves II through XII grossly intact. Normal speech, normal cerebellar exam. 5/5 strength, normal movement in all extremities, normal sensation PSYCH: Normal mood, normal affect. SKIN: Warm, dry, normal turgor, no visible rashes or lesions. Source: Patient Exam Limitations: No limitations - Personal History Current Tetanus/Diphtheria Vaccine: Unsure Current Tetanus Diphtheria and Acellular Pertussis (TDAP): Unsure Tetanus Vaccine Date: >10 YRS - Medical/Surgical History Hx Asthma: No Hx Chronic Respiratory Disease: No Hx Diabetes: No Hx Cardiac Disease: No Hx Renal Disease: No Hx Cirrhosis: No Hx Alcoholism: No Hx HIV/AIDS: No Hx Splenectomy or Spleen Trauma: No Other PMH: parkinsons. chronic bk issues. PE. Peptic ulcer disease - Social History Smoking Status: Never smoked Alcohol Use: Sober Drug Use: None Constitutional: Initial Vital Signs Temperature (C) 36.4 C 06/30/17 20:04 Heart Rate 91 06/30/17 20:04 Respiratory Rate 17 06/30/17 20:04 Blood Pressure 166/90 H 06/30/17 20:04 O2 Sat (%) 99 06/30/17 20:04 O2 Delivery Mode Room Air Allergies/Adverse Reactions: phenol Allergy (Severe, Verified 06/27/17 17:38) Other-Enter Comments Mavltqv-[id number]-Rgr Reductase Inhibitor Allergy (Severe, Verified 06/27/17 17:39) Other-Enter Comments iodine [Iodine] Allergy (Intermediate, Verified 11/27/10 12:30) EAT TOO MUCH FISH, RASH (PIMPLES ON BACK) CHOCOLATE Allergy (Intermediate, Uncoded 11/27/10 12:29) PIMPLES ON BACK 2 DAYS AFTER EATING Home Medications: Medication Instructions Recorded Aspirin EC [Aspirin EC 81 mg (*)] 81 mg PO DAILY@1200 06/27/17 Baclofen [Baclofen 20 mg (*)] 20 mg PO 08,12,21 06/27/17 Carbidopa/Levodopa 25/100Mg 1 tab PO TID PRN 06/27/17 [Sinemet 25/100 MG (*)] Carbidopa/Levodopa [Rytary ER 1 - 2 each PO HS PRN 06/27/17 48.75 mg-195 mg Cap] Carbidopa/Levodopa [Rytary ER 2 each PO DAILY@20 06/27/17 48.75 mg-195 mg Cap] Carbidopa/Levodopa [Rytary ER 3 each PO 0630,1100,1530 06/27/17 48.75 mg-195 mg Cap] Cholecalciferol Vit D3 [Vitamin D3 5,000 units PO DAILY 06/27/17 (*)] Dicyclomine [Bentyl 10 MG (*)] 10 mg PO QID PRN 06/27/17 Gabapentin [Neurontin 300 MG (*)] 300 - 600 mg PO HS 06/27/17 Gabapentin [Neurontin 300 MG (*)] 300 mg PO 08,12 06/27/17 Herbals/Supplements -Info Only 1 ea PO DAILY 06/27/17 Ibuprofen [Motrin (*)] 200 - 600 mg PO HS PRN 06/27/17 Lidocaine [Lidocare] 1 each TP DAILY 06/27/17 Linaclotide [Linzess] 290 mcg PO DAILY 06/27/17 Meloxicam 15 mg PO DAILY 06/27/17 Niacin [Niacin 500 mg (*)] 1,000 mg PO DAILY@1200 06/27/17 Niacin [Niacin 500 mg (*)] 500 mg PO 08,18 06/27/17 [place]-3 Fatty Acids [Fish Oil 1000 1,000 mg PO 08,18 06/27/17 mg (*)] [place]-3 Fatty Acids [Fish Oil 1000 2,000 mg PO DAILY@1200 06/27/17 mg (*)] Polyethylene Glycol 3350 [Miralax 8.5 - 34 gm PO DAILY PRN 06/27/17 17 gm (*)] Propylene Glycol/Peg 400 [Systane 1 - 2 drops OP Q2 PRN 06/27/17 Ultra 0.4-0.3% Eye Drp] Rotigotine [Neupro] 1 patch TP DAILY@2200 06/27/17 clonazePAM [Klonopin (*)] 0.25 mg PO 08,21 06/27/17 Pantoprazole Sodium [Protonix 40mg 40 mg PO BID #60 tab 06/28/17 (*)] Medical Decision Making - Diagnostics EKG Interpretation: An EKG obtained and was read and documented in trace view. Please see trace view for full reading and report. Sinus rhythm, no acute ischemic changes Imaging: Discussed imaging studies w/ train caller Radiologist ED Course/Re-evaluation: 9:30 p.m. the patient is feeling much better. We discussed his lab work and imaging which is reassuring as is his EKG. He states that he thinks he would prefer to go home although I did offer admission for observation. I will give him another L of fluid while we watched him and he would like to provide a urine sample. He states that he took his Parkinson's medication is now feeling much better. 10:30 p.m. the patient states that his headache returned to some degree but is now gone again except that he has some throbbing in his head. He states that it seems to be the part of his head that is up as opposed to down on the bed. We will continue to hydrate. He declines headache medicine. 10:42 p.m. the patient states that he would like to be admitted for further observation. I agree that this is reasonable. 10:50 p.m. I discussed the case with Dr. Calhoun who will admit to the medical service. Differential Diagnosis: Partial list of the Differential diagnosis considered include but were not limited to; Parkinson's, dehydration, and although unlikely based on the history and physical exam, I also considered migraine, tension headache, hemorrhage, anemia, hypotension, C diff, urinary tract infection. I discussed these differential diagnoses and the plan with the patient as well as the usual and expected course. The patient understands that the diagnosis is provisional and that in medicine we are not always correct and that further workup is often warranted. Usual and customary warnings were given. All of the patient's questions were answered. The patient was instructed to return to the emergency department should the symptoms at all worsen or return, otherwise to followup with the physician as we discussed. - Data Points Laboratory Results: Laboratory Results 06/30/17 20:35 06/30/17 20:35 Medications Given: Aspirin Buffered (Aspirin Ec) 81 mg PO DAILY@1200 [facility] Stop: 12/28/17 11:59 Last Admin: 07/01/17 14:09 Dose: 81 mg Baclofen (Baclofen) 20 mg PO 08,, [facility] Stop: 12/28/17 11:59 Last Admin: 07/01/17 11:38 Dose: 20 mg Cholecalciferol (Vitamin D) 5,000 units PO DAILY [facility] Stop: 12/28/17 08:59 Last Admin: 07/01/17 09:48 Dose: 5,000 units Clonazepam (Klonopin) 0.25 mg PO , [facility] Stop: 12/28/17 08:29 Last Admin: 07/01/17 10:04 Dose: 0.25 mg Gabapentin (Neurontin) 300 mg PO 08,12 [facility] Stop: 12/28/17 08:29 Last Admin: 07/01/17 14:09 Dose: 300 mg Miscellaneous Medication (Carbidopa/Levodopa [Rytary Er 48.75 Mg-195 Mg Cap]) 3 each PO 0630,1100,1530 [facility] Stop: 12/28/17 06:29 Last Admin: 07/01/17 11:37 Dose: 3 cap Miscellaneous Medication (Linaclotide [Linzess]) 290 mcg PO DAILY [facility] Stop: 12/28/17 08:59 Last Admin: 07/01/17 09:47 Dose: Not Given Miscellaneous Medication (Meloxicam [Meloxicam]) 15 mg PO DAILY [facility] Stop: 12/28/17 08:59 Last Admin: 07/01/17 09:51 Dose: Not Given Miscellaneous Medication (Icy Hot Lidocaine/Menthol 4%/1% Patch) 1 patch TD DAILY [facility] Stop: 12/28/17 08:44 Last Admin: 07/01/17 09:46 Dose: Not Given Niacin (Niacin) 500 mg PO [place] Stop: 12/28/17 08:29 Last Admin: 07/01/17 11:39 Dose: Not Given Niacin (Niacin) 1,000 mg PO DAILY@1200 [facility] Stop: 12/28/17 11:59 Last Admin: 07/01/17 11:39 Dose: 1,000 mg [id number] Ethyl Esters (Fish Oil) 1,000 mg PO ,18 [facility] Stop: 12/28/17 08:29 Last Admin: 07/01/17 10:05 Dose: 1,000 mg Gdxsu-9-Miyl Ethyl Esters (Fish Oil) 2,000 mg PO DAILY@1200 [facility] Stop: 12/28/17 11:59 Last Admin: 07/01/17 14:09 Dose: 2,000 mg Pantoprazole Sodium (Protonix) 40 mg PO BID [facility] Stop: 12/28/17 08:59 Last Admin: 07/01/17 09:44 Dose: 40 mg Pantoprazole Sodium (Protonix) 40 mg PO BID [facility] Stop: 12/28/17 08:59 Last Admin: 07/01/17 09:53 Dose: Not Given Senna/Docusate Sodium (Senokot-S) 1 - 2 tab PO BID [facility] PRN Reason: Protocol Stop: 12/28/17 08:59 Last Admin: 07/01/17 14:09 Dose: 2 tab Discontinued Medications Acetaminophen (Tylenol) 1,000 mg PO ONCE ONE Stop: 07/01/17 08:29 Last Admin: 07/01/17 09:44 Dose: 1,000 mg Diphenhydramine HCl (Benadryl Injection) 50 mg IVP ONCE ONE Stop: 07/01/17 08:28 Last Admin: 07/01/17 09:44 Dose: 50 mg Sodium Chloride (Ns) 1,000 mls @ 0 mls/hr IV EDNOW ONE; Wide Open PRN Reason: Protocol Stop: 06/30/17 20:28 Last Admin: 06/30/17 20:59 Dose: 1,000 mls Sodium Chloride (Ns) 1,000 mls @ 0 mls/hr IV ONCE ONE PRN Reason: Wide Open Stop: 06/30/17 21:48 Last Admin: 06/30/17 21:48 Dose: 1,000 mls Ondansetron HCl (Zofran) 4 mg IVP EDNOW ONE Stop: 06/30/17 20:28 Last Admin: 06/30/17 21:49 Dose: Not Given Departure - Departure Disposition: [facility] Inpatient Acute Clinical Impression: Lightheaded Headache Qualifiers: Headache type: unspecified Headache chronicity pattern: acute headache Intractability: not intractable Qualified Code(s): R51 - Headache Condition: Fair
--- NOTE | 2017-06-30 20:36 | CPEKG ---
Heart Rate: 69 RR Interval: 870 P-R Interval: 172 QRSD Interval: 90 QT Interval: 388 QTC Interval: 416 P Riddle: 80 QRS Riddle: 68 T Wave Riddle: 59 EKG Severity - NORMAL ECG - EKG Impression: SINUS RHYTHM Electronically Signed By: Brendan Medina 30-Jun-2017 20:42:26
[2017-06-30 20:41] LABS: PLATELET COUNT 203 10^3/uL (150-400)
[2017-06-30 20:50] LABS: INR 1.16 (0.83-1.16)
[2017-06-30] MEDS ORDERED: NS 1,000 ML IV SCH (23:45)
[2017-06-30] MEDS ORDERED: ACETAMINOPHEN 325 MG TAB PO PRN (23:51)
[2017-06-30] MEDS ORDERED: HYDROmorphONE/DILAUDID 2 MG/ML INJ IVP PRN (23:51)
[2017-06-30] MEDS ORDERED: ONDANSETRON 4 MG/2 ML VIAL IVP PRN (23:51)
[2017-07-01] MEDS ORDERED: HYDROCODONE/APAP 5/325 TAB PO PRN (00:02)
[2017-07-01 05:06] LABS: PLATELET COUNT 187 10^3/uL (150-400)
[2017-07-01] MEDS ORDERED: POLYETHYLENE GLYCOL 3350 17 GM PKT PO PRN ×2 (05:16→08:28)
[2017-07-01] MEDS ORDERED: MAGNESIUM HYDROXIDE 30 ML UDCUP PO PRN (05:16)
[2017-07-01] MEDS ORDERED: LACTULOSE 20 GM/30 ML UDCUP PO PRN (05:16)
[2017-07-01] MEDS ORDERED: BISACODYL 10 MG SUPP PR PRN (05:16)
[2017-07-01] MEDS ORDERED: RYTARY PO PRN (05:48)
[2017-07-01] MEDS: RYTARY PO SCH ×3 (06:08→15:56)
[2017-07-01] MEDS ORDERED: CARBIDOPA/LEVO CR 50 MG/200 MG TAB PO SCH (06:30)
[2017-07-01] MEDS ORDERED: CARBIDOPA/LEVODOPA 25 MG/100 MG TAB PO PRN (08:28)
[2017-07-01] MEDS ORDERED: DICYCLOMINE 10 MG CAP PO PRN (08:28)
[2017-07-01] MEDS ORDERED: PEG OP PRN (08:28)
[2017-07-01] MEDS ORDERED: IBUPROFEN 200 MG TAB PO PRN (08:28)
[2017-07-01] MEDS ORDERED: ACETAMINOPHEN 500 MG TAB PO ONE (08:28)
[2017-07-01] MEDS ORDERED: PROPYLENE GLYCOL OP PRN (08:28)
[2017-07-01] MEDS ORDERED: NIACIN 500 MG TAB PO SCH ×2 (08:30→12:00)
[2017-07-01] MEDS ORDERED: clonazePAM 0.5 MG TAB PO SCH (08:30)
[2017-07-01] MEDS ORDERED: OMEGA-3 FATTY ACIDS 1,000 MG CAP PO SCH ×2 (08:30→12:00)
[2017-07-01] MEDS ORDERED: CHOLECALCIFEROL VIT D3 1,000 UNITS TAB PO SCH (09:00)
[2017-07-01] MEDS ORDERED: PANTOPRAZOLE SODIUM 40 MG TAB PO SCH ×2 (09:00)
[2017-07-01] MEDS ORDERED: SENNOSIDES/DOCUSATE SODIUM TAB PO SCH (09:00)
[2017-07-01] MEDS ORDERED: Meloxicam [Meloxicam] 15 MG PO SCH (09:00)
[2017-07-01] MEDS ORDERED: LIDOCAINE TP SCH (09:00)
[2017-07-01] MEDS ORDERED: Herbals/Supplements -Info Only PO SCH (09:00)
--- NOTE | 2017-07-01 09:04 | PDGENHP ---
History and Physical - Chief Complaint Dizziness and headache - History of Present Illness Source-patient provides history and appears reliable. Case discussed with ED provider and EMR was reviewed. HPI - this is a very pleasant 67-year-old gentleman with past medical history significant for Parkinson's disease who presents to the emergency department today with complaints of severe headache and some lightheadedness. Patient denies any focal deficits. He does have a baseline tremor related to his Parkinson's but reports that his symptoms are pretty close to baseline. He notes that they are on slowly progressing to decompensation and with difficulties with movement but he absolutely denies any focal weakness or generalized weakness. Patient does utilize a walker this needed he has not had any recent falls. Patient denies any associated changes in vision blurry or double. 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 Patient felt that his headache was increasingly more severe at home and was the "worse headache of my life"patient reports that were CIS pain was 8/10. Currently patient states that his headache is decreased down to a 4/10. Patient was recently admitted several days ago for an upper GI bleed related to a culture gastric ulcer. His H&H had remained stable he denies any melena or hematochezia. Patient also is concerned regarding some lightheadedness. He denies any presyncope or syncopal episodes while home. Patient's symptoms of headache and dizziness started suddenly home several hours prior to his arrival in the emergency department while sitting watching TV. Sitting up made his head symptoms worsen. Lying down improved his symptoms. Patient denies any vertiginous type symptoms. He has not had any on nausea or vomiting. In the ED, patient underwent evaluation with CT head which was negative for any acute findings. He was given IV fluids and reported resolution of his dizziness. His headache as above has improved but not complete. Patient has declined any treatment or medications for his headache at this time. History Information - Allergies/Home Medication List Allergies/Adverse Reactions: phenol Allergy (Severe, Verified 06/27/17 17:38) Other-Enter Comments Ojuvzjp-Zga-Wic Reductase Inhibitor Allergy (Severe, Verified 06/27/17 17:39) Other-Enter Comments iodine [Iodine] Allergy (Intermediate, Verified 11/27/10 12:30) EAT TOO MUCH FISH, RASH (PIMPLES ON BACK) CHOCOLATE Allergy (Intermediate, Uncoded 11/27/10 12:29) PIMPLES ON BACK 2 DAYS AFTER EATING Home Medications: Aspirin EC [Aspirin EC 81 mg (*)] 81 mg PO DAILY@1200 06/27/17 [Last Taken 06/30] Baclofen [Baclofen 20 mg (*)] 20 mg PO 08,12,06/27/17 [Last Taken 06/30/17 12 :00] Carbidopa/Levodopa 25/100Mg [Sinemet 25/100 MG (*)] 1 tab PO TID PRN 06/27/17 [ Last Taken Unknown] Carbidopa/Levodopa [Rytary ER 48.75 mg-195 mg Cap] 1 - 2 each PO HS PRN [Last Taken Unknown] Carbidopa/Levodopa [Rytary ER 48.75 mg-195 mg Cap] 2 each PO DAILY@20 06/27/17 [ Last Taken 06/30/17] Carbidopa/Levodopa [Rytary ER 48.75 mg-195 mg Cap] 3 each PO 0630,1100,1530 [Last Taken 07/01/17 06:30] Cholecalciferol Vit D3 [Vitamin D3 (*)] 5,000 units PO DAILY 06/27/17 [Last Taken 06/30/17] Dicyclomine [Bentyl 10 MG (*)] 10 mg PO QID PRN 06/27/17 [Last Taken Unknown] Gabapentin [Neurontin 300 MG (*)] 300 - 600 mg PO HS 06/27/17 [Last Taken ] Gabapentin [Neurontin 300 MG (*)] 300 mg PO ,06/27/17 [Last Taken 06/30/17 12:00] Herbals/Supplements -Info Only 1 ea PO DAILY 06/27/17 [Last Taken Unknown] Ibuprofen [Motrin (*)] 200 - 600 mg PO HS PRN 06/27/17 [Last Taken 06/25/17] Lidocaine [Lidocare] 1 each TP DAILY 06/27/17 [Last Taken 06/24/17] Linaclotide [Linzess] 290 mcg PO DAILY 06/27/17 [Last Taken 06/30/17] Meloxicam 15 mg PO DAILY 06/27/17 [Last Taken 06/30/17] Niacin [Niacin 500 mg (*)] 1,000 mg PO DAILY@1200 06/27/17 [Last Taken 06/30/17] Niacin [Niacin 500 mg (*)] 500 mg PO 06/27/17 [Last Taken 06/30/17 08:00] Altheimer-3 Fatty Acids [Fish Oil 1000 mg (*)] 1,000 mg PO 06/27/17 [Last Taken 06/30/17 08:00] Altheimer-3 Fatty Acids [Fish Oil 1000 mg (*)] 2,000 mg PO DAILY@1200 06/27/17 [ Last Taken 06/30/17] Polyethylene Glycol 3350 [Miralax 17 gm (*)] 8.5 - 34 gm PO DAILY PRN 06/27/17 [ Last Taken 06/30/17 12:00 17 gm] Propylene Glycol/Peg 400 [Systane Ultra 0.4-0.3% Eye Drp] 1 - 2 drops OP Q2 PRN 06/27/17 [Last Taken Unknown] Rotigotine [Neupro] 1 patch TP DAILY@2200 06/27/17 [Last Taken 06/26/17] clonazePAM [Klonopin (*)] 0.25 mg PO 06/27/17 [Last Taken 06/30/17 08:00] I have personally reviewed and updated: family history, medical history, social history, surgical history - Past Medical History Additional medical history: Parkinson's disease, upper GI bleed related to gastric ulcer 06/24/2017, chronic back pain, history of PE status post completion of anticoagulation. HLD, HTN, LULU, neuropathy in distal extremities. - Surgical History Additional surgical history: Tonsillectomy and adenoidectomy, left TKA, back surgery, EGD - Family History Additional family history: Negative for Parkinson's or other neurologic deficits. Father with history CHF. Mother with history CAD and stent placement - Social History Smoking Status: Never smoked Alcohol Use: None Drug Use: None Additional social history: Patient is and lives with his . He is a computer aided design technician/cmm programmer. Cor status-full. Review of Systems Review of Systems: ROS: 10pt was reviewed & negative except for what was stated in HPI & below Gastrointestinal: Reports: abdominal pain. Denies: black stools, rectal bleeding, diarrhea, nausea Physical Exam Physical Exam: Selected Entries 06/30/17 07/01/17 20:04 00:11 Blood Pressure Automatic Method Heart Rate 91 76 Respiratory 17 16 Rate O2 Sat (%) 99 98 Temperature (C) 36.4 C Blood Pressure 166/90 H 132/85 H Mean Arterial 115 H 100 Pressure (MAP) O2 Delivery Room Air Room Air Mode Temperature Oral Source Constitutional: no apparent distress, chronically ill appearing, other (NAD. Patient is lying quietly in bed still. His abdomen does appear slightly distant line CT is no acute distress.) Eyes: PERRL, anicteric sclera, EOMI, No scleral injection Ears, Nose, Mouth, Throat: no oral mucosal ulcers, dry mucous membranes, No poor dentition Cardiovascular: regular rate and rhythym, no murmur, rub, or gallop, pulses symmetric bilaterally, No edema Peripheral Pulses: 2+: dorsalis-pedis (R), dorsalis-pedis (L) Respiratory: no respiratory distress, no rales or rhonchi, clear to auscultation Gastrointestinal: normoactive bowel sounds, soft, non-tender abdomen, no palpable masses, guarding (Initially some voluntary guarding and withdrawal from exam upon repeat evaluation patient does continue complaint significant tenderness but [place] for palpation.), distension, No rebound Genitourinary: no bladder tenderness, No zaragoza in urethra Skin: warm, normal color, no rashes or abrasions, other ([place]) Musculoskeletal: generalized weakness (Patient is able to move all his extremities. His some slowed movement. Cog wheeling at the elbow and wrist..) Neurologic: facial droop (Patient with a left lower facial droop which she reports is chronic.) Lab Data & Imaging Review 07/01/17 04:27 07/01/17 04:27 Laboratory Tests 06/30/17 06/30/17 06/30/17 20:35 20:35 20:35 WBC 6.71 RBC 3.71 L Hgb 12.5 L Hct 35.3 L MCV 95.1 MCH 33.7 MCHC 35.4 RDW 12.1 Plt Count 203 MPV 8.9 Neut % (Auto) 58.2 Lymph % (Auto) 28.0 [place] % (Auto) 8.5 Eos % (Auto) 4.8 Baso % (Auto) 0.4 Nucleat RBC Rel Count 0.0 Absolute Neuts (auto) 3.90 Absolute Lymphs (auto) 1.88 Absolute Monos (auto) 0.57 Absolute Eos (auto) 0.32 Absolute Basos (auto) 0.03 Absolute Nucleated RBC 0.00 Immature Gran % 0.1 Immature Gran # 0.01 PT 15.0 INR 1.16 APTT 32.6 Sodium 138 Potassium 3.8 Chloride 101 Carbon Dioxide 28 Anion Gap 9 BUN 19 Creatinine 0.7 Estimated GFR > 60 Glucose 100 Calcium 9.0 Total Bilirubin 0.8 Conjugated Bilirubin 0.4 Unconjugated Bilirubin 0.4 AST 40 ALT 23 Alkaline Phosphatase 84 Troponin I < 0.012 Total Protein 6.6 Albumin 3.8 Lipase 224 Urine Color Urine Appearance Urine pH Ur Specific [place] Urine Protein Urine Ketones Urine Blood Urine Nitrate Urine Bilirubin Urine Urobilinogen Ur Leukocyte Esterase Urine RBC Urine WBC Ur Epithelial Cells Urine Mucus Urine Glucose 06/30/17 21:55 WBC RBC Hgb Hct MCV MCH MCHC RDW Plt Count MPV Neut % (Auto) Lymph % (Auto) [place] % (Auto) Eos % (Auto) Baso % (Auto) Nucleat RBC Rel Count Absolute Neuts (auto) Absolute Lymphs (auto) Absolute Monos (auto) Absolute Eos (auto) Absolute Basos (auto) Absolute Nucleated RBC Immature Gran % Immature Gran # PT INR APTT Sodium Potassium Chloride Carbon Dioxide Anion Gap BUN Creatinine Estimated GFR Glucose Calcium Total Bilirubin Conjugated Bilirubin Unconjugated Bilirubin AST ALT Alkaline Phosphatase Troponin I Total Protein Albumin Lipase Urine Color YELLOW Urine Appearance CLEAR Urine pH 5.0 Ur Specific [place] 1.012 Urine Protein NEGATIVE Urine Ketones TRACE H Urine Blood NEGATIVE Urine Nitrate NEGATIVE Urine Bilirubin NEGATIVE Urine Urobilinogen NEGATIVE Ur Leukocyte Esterase NEGATIVE Urine RBC NONE SEEN Urine WBC 1-3 Ur Epithelial Cells TRACE Urine Mucus TRACE Urine Glucose NEGATIVE Imaging Review: CT Brain (Without Contrast) at 2 hours History: Dizziness and headache this evening. Comparison: December 27, 2012 Technique: Axial computed tomographic images of the brain without contrast. Dose reduction techniques were utilized. Findings: Ventricles, cisterns, and sulci are normal without atrophy, hydrocephalus, midline shift /herniation, or epidural/subdural hematomas. Partial cavum septum lucidum again noted. No acute intraparenchymal hemorrhage, definite infarct, or mass effect. Bone windows demonstrate no displaced fractures. Paranasal sinuses and mastoid air cells are clear. Impression: 1. Normal CT brain without contrast. 2. Consider MRI of the brain, if there is continued clinical concern. Findings were discussed by telephone with Brendan Medina at 2106 hours 06/30/2017 Visualized and Interpreted imaging results: Yes Visualized and Interpreted EKG results: Yes EKG additional interpertation: NSR in the 60s. No acute ST changes. Slightly prominent T-waves and lateral leads but not peaked. QTC is 416. Assessment & Plan Assessment: Eladio is a 67-year-old pleasant gentleman with history of Parkinson's disease and recent hospitalization for upper GI bleeding due to gastric ulcer who presents to the emergency department today with complaints of severe headache and lightheadedness. He denies any weakness or focal deficits. Headache (Acute) - possibly related to dehydration or pain less likely C acute CVA. CT head was negative for any acute findings. Left lower facial droop was noted during the interview. Patient reports that this is a chronic finding and remains unchanged. He denies any dysphagia or drooling. Lightheaded (Acute) - this has resolved following some hydration. Will continue to monitor. PT OT will be consulted. Left lower quadrant abdominal pain - patient with significant tenderness in the left lower quadrant. No rebound but some voluntary guarding on initial exam. He is currently afebrile but concerned that he may have potentially developed diverticulitis which could be exacerbating his Parkinson's symptoms. Anemia due to history of GI bleed no longer acute. Will monitor patient's H&H. He denies any symptoms consistent with active GI bleeding. He has been will plan to continue patient's PPI. Gastric ulcer - continue PPI as above. Chronic medical problems Parkinson's disease - continue patient's carbidopa/levodopa as per his schedule. I have ordered a.m. And continue daily dosing 1 med rec is available for continuation. Benign essential hypertension- blood pressures at this time are acceptable. Patient is not currently on any chronic therapy/hyper antihypertensives HLD - reaction to statins. LULU - supplemental oxygen at HS Constipation - bowel regimen following CT of abdomen pelvis. FEN - some gentle IV fluid hydration overnight make patient NPO for study. Electrolyte monitoring and replacement p.r.n.. Cor status-full PPX-SCDs only at this time given patient's recent history of upper GI bleeding will not give any anticoagulation. Disposition patient has been admitted to observation status on the medical floor pending reassessment of his on headache and lightheadedness symptoms and evaluation of the left lower quadrant abdominal pain.
[2017-07-01 09:05] VITALS: BP 108/57; PULSE 84; RESP 18; TEMP 97.2; O2SAT 94
--- NOTE | 2017-07-01 09:36 | ASMTCMCOM ---
CM Note CM Note Notes: Chart reviewed for discharge planning purposes. Patient just discharged independent on 06/28/17. Presented to ED with complaints of headache and lightheadedness, admitted to OBS. CM to follow. Date Signed: 07/01/2017 09:35 AM Electronically Signed By:Caridad Zayas RN
[2017-07-01] MEDS: LIDOCAINE 4%/MENTHOL 1% PATCH TD SCH ×2 (09:45→09:46)
[2017-07-01] MEDS: GABAPENTIN 300 MG CAP PO SCH ×2 (10:04→14:09)
[2017-07-01] MEDS ORDERED: IOPAMIDOL (ISOVUE 370) 100 ML BTL IV ONE (10:17)
[2017-07-01] MEDS ORDERED: IOPAMIDOL (ISOVUE-300) 100 ML BTL ONE (10:18)
[2017-07-01] MEDS ORDERED: BACLOFEN 20 MG TAB PO SCH (12:00)
[2017-07-01] MEDS ORDERED: ASPIRIN EC 81 MG TAB PO SCH (12:00)
--- NOTE | 2017-07-01 16:18 | ASMTLACE ---
ANAHIE Length of stay for Answers: 1 day current admission Acuity / Level of Answers: No Care: Did the patient have an inpatient admission? Comorbidities - select Answers: Other Notes: parkinsons, GI bleed all that apply # of Emergency department Answers: 1-2 visits in the last 6 months Score: 3 Date Signed: 07/01/2017 04:17 PM Electronically Signed By:Caridad Zayas RN
--- NOTE | 2017-07-01 16:19 | ASMTCMCOM ---
CM Note CM Note Notes: Patient has been medically cleared for discharge to home. No needs identified at this time. CM available should needs arise. Date Signed: 07/01/2017 04:19 PM Electronically Signed By:Caridad Zayas RN
--- NOTE | 2017-07-01 17:37 | PDDCSUM ---
Discharge Summary Discharge Summary: DISCHARGE SUMMARY FOLLOW-UP ITEMS: Reassess headaches and Parkinson's medications with Dr. Borrego Reassess abdominal pain and the potential role of constipation with Dr. Demetrius Almeida DATE OF ADMISSION: 06/30/2017 DATE OF DISCHARGE: 07/01/2017 DISCHARGE DIAGNOSES: 1. Acute on chronic headache 2. Acute on chronic abdominal pain 3. Acute constipation 4. 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 without any evidence of acute volvulus obstruction or colitis; acute on chronic constipation with mild distention of the cecum and semi-solid stool within the distal ileum CHIEF COMPLAINT: Acute on chronic headache with acute on chronic abdominal pain SUBJECTIVE: Patient is feeling improved at discharge, his pain level of his headache has significantly lessened, he has moved his bowels, his abdominal pain is less PHYSICAL EXAM ON DISCHARGE: Systolic blood pressure is 120-160, heart rate 70 90, afebrile overnight, satting on room air, alert awake oriented x3, patient has ongoing dyskinetic movements of his head and upper extremities, he has some tenderness to palpation over the left hemidiaphragm without any guarding, bowel sounds are present, lungs are clear LABS ON DISCHARGE: Hemoglobin 11.3, white blood count 4300, platelets 218373, potassium 3.8, creatinine 0.6, BUN 16, liver panel unremarkable HOSPITAL COURSE BY PROBLEM: The patient presented with acute on chronic headache which was resulting in some lightheadedness and was characterized as the worst headache of his life. Head CT demonstrated no intracranial hemorrhage and his neurologic exam was benign other than his chronic dyskinetic movements in the setting of his Parkinson's disease. The exact etiology of his headache is unclear. He declined to receive any opiates and his symptoms improved with his home as needed medications including Tylenol, baclofen. It is unclear whether he has experienced headaches symptoms secondary to the introduction of pantoprazole, but his does note that he has had increased symptoms temporarily associated with the initiation of that medication. Given the headaches are consider a side effect of this med, I recommended adjusting it to another proton pump inhibitor to gauge whether he experiences any improvement. The patient also describes worsening of his headaches with certain body positions, and I urged him to consider that there may be a musculoskeletal component to these headaches that may be alleviated non pharmacologically with heat, ice, massage therapy. The patient keeps a very detailed log of his headache pain and I have urged him to continue this log, detailing it with any adjustments in medications or interventions. I recommended that he follow up with his primary neurologist to focus on headache management, as it has been a chronic issue for the patient and I sense that the patient's tolerance of this symptom may be somewhat weaning as his overall patience with his medical condition may be weaning as well. On the patient's initial history and physical, it was noted that he had left lower quadrant tenderness and the patient reported abdominal pain. Insidious pathology was ruled out with an abdominal CT which demonstrated malrotation of bowel with some bowel distention secondary to constipation. Patient had otherwise no evidence of infection. He had a large bowel movement and his pain was somewhat improved. I believe that the patient's abdominal pain is currently consistent with his chronic abdominal pain level and there is nothing further to be investigated. The patient is already on supportive care medication from Dr. Demetrius Almeida including Linzess as well as laxatives, I spent a considerable amount of time coaching the patient is regarding potential strategies of increasing his frequency of bowel movements to prevent subclinical bowel distention which can manifest as acute worsening of chronic abdominal pain. I suggested that the patient consider introducing a scheduled stool softener in addition to what he is already taking, or increase his daily consumption of his laxative of choice, namely MiraLax. The patient indicated that he would consider the strategies, but he was not ready to make overall changes. I also suggested to the patient that he keep detailed records of his abdominal pain and bowel movements on his documentation logs, and the patient will do so. I recommended that he follow-up specifically with Dr. Demetrius Almeida to focus on this issue, as this is an issue which consistently concerns the patient and warrants special attention. The patient's other chronic medical issues remained stable, and I recommended that he follow up with his primary neurologist to continue the conversation regarding his Parkinson's medications and that he follow up with his primary orthopedist to discuss his arthritic back pain. The patient and his asked me whether they should consider establishing primary care with an internal medicine physician as opposed to Family Medicine one, and I recommended that they open up this conversation with her primary care doctor to determine whether he has any recommendations regarding other members in his practice with internal medicine training. For continuity, I recommended that the patient continue this conversation through his primary care provider office as opposed to simply re-establishing care with a new office , particularly at this state of progression of his many chronic medical issues. DISCHARGE MEDICATIONS: Please see official discharge medication reconciliation sheet in chart , continue all home medications with the change from pantoprazole to omeprazole 40 mg twice daily, Senokot S1 tab twice daily, and Tylenol as needed for pain. DISCHARGE INSTRUCTIONS: Please follow up with primary neurologist, then primary farm consultant, then primary care physician.
[2017-07-01] MEDS ORDERED: RYTARY PO SCH (19:00)
[2017-07-01] MEDS ORDERED: PATCH REMOVAL 1 EA PATCH TD SCH (21:00)
[2017-07-01] MEDS ORDERED: GABAPENTIN 300 MG CAP PO SCH (21:00)
[2017-07-01] MEDS ORDERED: Rotigotine [Neupro] 1 PATCH TP SCH (22:00)
== END 2017-07-01 18:50 | disposition home or self-care (01) ==
LOC: F1N 07-01 00:01
PROVIDERS: ADMIT Family Medicine; ATTEND Family Medicine
DX: R51 Headache (principal); R42 Dizziness and giddiness; G20 Parkinson's disease
CPT/HCPCS: 70450; 74177; 93005; 97165; G0378; J1200; J2405; Q9967

== ENCOUNTER → 2017-08-27 | Outpatient (CLI) | payer OTHER | LOC: FIMAGING 10:13 | PROVIDERS: ATTEND Physician Assistant | DX: M51.36 Other intervertebral disc degeneration, lumbar region (principal); M41.86 Other forms of scoliosis, lumbar region; M19.012 Primary osteoarthritis, left shoulder; M19.011 Primary osteoarthritis, right shoulder | CPT/HCPCS: A9503 ==

== ENCOUNTER 2018-07-03 17:37 | Emergency (ER) | payer OTHER ==
[2018-07-03 18:15] LABS: PLATELET COUNT 221 10^3/uL (150-400)
[2018-07-03] MEDS ORDERED: methylPREDNISolone SOD SUCC 125 MG/2 ML VIAL IVP ONE (18:20)
[2018-07-03] MEDS ORDERED: NS 1,000 ML IV ONE (18:20)
[2018-07-03] MEDS ORDERED: IOPAMIDOL (ISOVUE-370) 150 ML BTL IV ONE (18:20)
--- NOTE | 2018-07-03 19:18 | EDPHY ---
H & P Stated Complaint: cp,sob Time Seen by Provider: 07/03/18 17:48 HPI/ROS: CHIEF COMPLAINT: Shortness of breath x1 week. Slight heaviness in the chest. HISTORY OF PRESENT ILLNESS: This is a 68-year-old gentleman with history of Parkinson's disease scheduled to have a deep brain stimulator placed next week who presents reporting that for the last week he has been short of breath with vague chest discomfort. Symptoms have been present consistently for last week. He feels more short of breath when he is walking. No fevers or chills. No cold symptoms, no cough, no nausea or vomiting, no diaphoresis, urinary complaints, no headache, no lightheadedness. Patient was seen by a area field worker oncologist 3 days ago and reports that he had elevated D-dimer. Patient has no history of hypertension or hypercholesterolemia. No diabetes. Nonsmoker. No family history of early coronary artery disease. REVIEW OF SYSTEMS: A comprehensive 10 system review of systems was reviewed and is otherwise negative aside from elements mentioned in the history of present illness and medical decision making. PAST MEDICAL HISTORY: Parkinson disease. History of PEs. History of peptic ulcer disease. SOCIAL HISTORY: Nonsmoker. . VITAL SIGNS Reviewed by me. GENERAL: Well-developed, well-nourished, persistent tremors of head. HEENT: Atraumatic. Eyes: No icterus, no injection. Mouth: moist mucous membranes. No erythema or lesions. Neck: supple with no adenopathy. LUNGS: Clear to auscultation bilaterally, no wheezes, rhonchi or rales. CARDIAC: Regular rate and rhythm, no rubs, murmurs or gallops. ABDOMEN: Soft, nontender, nondistended, bowel sounds normal. BACK: No CVA tenderness. EXTREMITIES: No trauma. No edema. Range of motion is normal throughout. NEURO: Alert and oriented, grossly nonfocal. SKIN: Warm and dry, no rash. PSYCHIATRIC: Normal mentation, no agitation. - Personal History Current Tetanus Diphtheria and Acellular Pertussis (TDAP): Yes Tetanus Vaccine Date: >10 YRS - Medical/Surgical History Hx Asthma: No Hx Chronic Respiratory Disease: No Hx Diabetes: No Hx Cardiac Disease: No Hx Renal Disease: No Hx Cirrhosis: No Hx Alcoholism: No Hx HIV/AIDS: No Hx Splenectomy or Spleen Trauma: No Other PMH: parkinsons. chronic bk issues. PE. Peptic ulcer disease - Social History Smoking Status: Never smoked Constitutional: Initial Vital Signs Temperature (C) 36.4 C 07/03/18 17:45 Heart Rate 63 07/03/18 17:45 Respiratory Rate 20 07/03/18 17:45 O2 Sat (%) 97 07/03/18 17:45 O2 Delivery Mode Room Air Allergies/Adverse Reactions: phenol Allergy (Severe, Verified 07/03/18 17:42) Other-Enter Comments Vylgeei-Dgi-Scw Reductase Inhibitor Allergy (Severe, Verified 07/03/18 17:42) Other-Enter Comments iodine [Iodine] Allergy (Intermediate, Verified 07/03/18 17:42) EAT TOO MUCH FISH, RASH (PIMPLES ON BACK) CHOCOLATE Allergy (Intermediate, Uncoded 07/03/18 17:42) PIMPLES ON BACK 2 DAYS AFTER EATING Home Medications: Medication Instructions Recorded Aspirin EC [Aspirin EC 81 mg (*)] 81 mg PO DAILY@1200 06/27/17 Baclofen [Baclofen 20 mg (*)] 20 mg PO 08,12,21 06/27/17 Carbidopa/Levodopa 25/100Mg 1 tab PO TID PRN 06/27/17 [Sinemet 25/100 MG (*)] Carbidopa/Levodopa [Rytary ER 1 - 2 each PO HS PRN 06/27/17 48.75 mg-195 mg Cap] Carbidopa/Levodopa [Rytary ER 2 each PO DAILY@20 06/27/17 48.75 mg-195 mg Cap] Carbidopa/Levodopa [Rytary ER 3 each PO 0630,1100,1530 06/27/17 48.75 mg-195 mg Cap] Cholecalciferol Vit D3 [Vitamin D3 5,000 units PO DAILY 06/27/17 (*)] Dicyclomine [Bentyl 10 MG (*)] 10 mg PO QID PRN 06/27/17 Gabapentin [Neurontin 300 MG (*)] 300 - 600 mg PO HS 06/27/17 Gabapentin [Neurontin 300 MG (*)] 300 mg PO 08,12 06/27/17 Herbals/Supplements -Info Only 1 ea PO DAILY 06/27/17 Lidocaine [Lidocare] 1 each TP DAILY 06/27/17 Linaclotide [Linzess] 290 mcg PO DAILY 06/27/17 Meloxicam 15 mg PO DAILY 06/27/17 Niacin [Niacin 500 mg (*)] 1,000 mg PO DAILY@1200 06/27/17 Niacin [Niacin 500 mg (*)] 500 mg PO 08,18 06/27/17 [place]-3 Fatty Acids [Fish Oil 1000 1,000 mg PO 08,18 06/27/17 mg (*)] [place]-3 Fatty Acids [Fish Oil 1000 2,000 mg PO DAILY@1200 06/27/17 mg (*)] Polyethylene Glycol 3350 [Miralax 8.5 - 34 gm PO DAILY PRN 06/27/17 17 gm (*)] Propylene Glycol/Peg 400 [Systane 1 - 2 drops OP Q2 PRN 06/27/17 Ultra 0.4-0.3% Eye Drp] Rotigotine [Neupro] 1 patch TP DAILY@219906/27/17 clonazePAM [Klonopin (*)] 0.25 mg PO ,06/27/17 Acetaminophen [Tylenol 325mg (*)] 650 mg PO Q4HRS PRN tab 07/01/17 Omeprazole 40 mg PO BID #60 capsule. 07/01/17 Sennosides/Docusate Sodium 1 tab PO BID #60 tab 07/01/17 [Senokot-S] Dexamethasone [Decadron 2 MG (*)] 2 mg PO BID #14 tab 10/22/17 Medical Decision Making - Diagnostics EKG Interpretation: 12-LEAD EKG: Please see the full report in [facility]. My interpretation: Sinus rhythm no ST or T-wave changes. Imaging Results: Imaging Impressions Chest/Thorax CTA 07/03/18 18:16 Impression: Negative CT examination of the chest for acute pulmonary thromboembolic disease. Results called to Dr. Donna Holman at 7:05 PM at the time of the interpretation. ED Course/Re-evaluation: 66-year-old gentleman with history of PEs, no longer anticoagulated, presents with chest discomfort and shortness of breath which is been present for about a week. He is scheduled to have a deep brain stimulator placed on Friday and is concerned that he may have recurrent pulmonary embolism. EKG shows no ischemic changes. Bedside troponin is negative. D-dimer on prior evaluation is elevated at 0.9. Patient underwent CT scan of the chest to evaluate for pulmonary embolism. This was negative for any PE. No other significant findings in the chest to explain the patient's shortness of breath. Patient and his were comfortable being discharged home. I believe the patient is low risk for acute coronary syndrome, has a nonischemic EKG and normal troponin despite several days of ongoing shortness of breath and chest discomfort. He will discuss his shortness of breath with his surgeon tomorrow in light of the fact that he is scheduled for surgery on Friday. He has no infectious symptomatology. He return to the emergency department or seek care urgently if his symptoms are worsening. Differential Diagnosis: Differential diagnosis for the patient's shortness of breath was considered including but not limited to pulmonary infectious processes, COPD exacerbation, pulmonary emboli, pulmonary edema, congestive heart failure, and cardiac causes. - Data Points Laboratory Results: Laboratory Results 07/03/18 18:00 07/03/18 18:00 07/03/18 07/03/18 07/03/18 18:05 18:00 18:00 WBC RBC Hgb Hct MCV MCH MCHC RDW Plt Count MPV Neut % (Auto) Lymph % (Auto) [place] % (Auto) Eos % (Auto) Baso % (Auto) Nucleat RBC Rel Count Absolute Neuts (auto) Absolute Lymphs (auto) Absolute Monos (auto) Absolute Eos (auto) Absolute Basos (auto) Absolute Nucleated RBC Immature Gran % Immature Gran # D-Dimer 0.77 ug/mLFEU H ug/mLFEU (0.00-0.50) Sodium 137 mEq/L mEq/L (135-145) Potassium 4.3 mEq/L mEq/L (3.5-5.2) Chloride 99 mEq/L mEq/L (97-110) Carbon Dioxide 30 mEq/l mEq/l (22-31) Anion Gap 8 mEq/L mEq/L (6-14) BUN 18 mg/dL mg/dL (7-23) Creatinine 0.7 mg/dL mg/dL (0.7-1.3) Estimated GFR > 60 Glucose 81 mg/dL mg/dL (70-100) Calcium 9.5 mg/dL mg/dL (8.5-10.4) POC Troponin I 0.00 ng/mL ng/mL (0.00-0.08) 07/03/18 18:00 WBC 5.86 10^3/uL 10^3/uL (3.80-9.50) RBC 5.01 10^6/uL 10^6/uL (4.40-6.38) Hgb 15.9 g/dL g/dL (13.7-17.5) Hct 46.6 % % (40.0-51.0) MCV 93.0 fL fL (81.5-99.8) MCH 31.7 pg pg (27.9-34.1) MCHC 34.1 g/dL g/dL (32.4-36.7) RDW 12.3 % % (11.5-15.2) Plt Count 221 10^3/uL 10^3/uL (150-400) MPV 9.0 fL fL (8.7-11.7) Neut % (Auto) 57.3 % % (39.3-74.2) Lymph % (Auto) 27.8 % % (15.0-45.0) [place] % (Auto) 10.2 % % (4.5-13.0) Eos % (Auto) 3.8 % % (0.6-7.6) Baso % (Auto) 0.7 % % (0.3-1.7) Nucleat RBC Rel Count 0.0 % % (0.0-0.2) Absolute Neuts (auto) 3.36 10^3/uL 10^3/uL (1.70-6.50) Absolute Lymphs (auto) 1.63 10^3/uL 10^3/uL (1.00-3.00) Absolute Monos (auto) 0.60 10^3/uL 10^3/uL (0.30-0.80) Absolute Eos (auto) 0.22 10^3/uL 10^3/uL (0.03-0.40) Absolute Basos (auto) 0.04 10^3/uL 10^3/uL (0.02-0.10) Absolute Nucleated RBC 0.00 10^3/uL 10^3/uL (0-0.01) Immature Gran % 0.2 % % (0.0-1.1) Immature Gran # 0.01 10^3/uL 10^3/uL (0.00-0.10) D-Dimer Sodium Potassium Chloride Carbon Dioxide Anion Gap BUN Creatinine Estimated GFR Glucose Calcium POC Troponin I Medications Given: Discontinued Medications Sodium Chloride (Ns) 1,000 mls @ 0 mls/hr IV ONCE ONE; Wide Open PRN Reason: Protocol Stop: 07/03/18 18:21 Last Admin: 07/03/18 18:41 Dose: 1,000 mls Methylprednisolone Sodium Succinate (Solu-Medrol) 125 mg IVP EDNOW ONE Stop: 07/03/18 18:21 Last Admin: 07/03/18 18:42 Dose: Not Given Point of Care Test Results: Chemistry 07/03/18 18:05 POC Troponin I 0.00 ng/mL ng/mL (0.00-0.08) Departure - Departure Disposition: Home, Routine, Self-Care Clinical Impression: Shortness of breath Condition: Good Instructions: Dyspnea (ED) Additional Instructions: There is no clear evidence of cardiac cause of the shortness of breath. You have no blood clot in your lungs. Your EKG demonstrates normal sinus rhythm with no signs of ischemia. Your troponin was negative. CT scan of your chest demonstrates no pneumonia and no blood clot. Please contact your surgeon to discuss these findings prior to your scheduled surgery. If you develop a fever, cough, worsening shortness of breath, palpitations, lightheadedness, dizziness, or fainting, please return to the emergency department or seek care urgently Referrals: Jonel Pendleton MD [Primary Care Provider] - As per Instructions
--- NOTE | 2018-07-03 19:22 | CPEKG ---
Test Reason : OPEN Blood Pressure : / mmHG Vent. Rate : 058 BPM Atrial Rate : 058 BPM P-R Int : 155 ms QRS Dur : 094 ms QT Int : 405 ms P-R-T Axes : 079 071 072 degrees QTc Int : 398 ms Sinus rhythm Confirmed by Elier Lazaro ([id number]) on 07/03/2018 7:21:44 PM Referred By: Donna Holman Confirmed By:Elier Lazaro
[2018-07-03] MEDS ORDERED: ACETAMINOPHEN 500 MG TAB PO ONE (19:27)
[2018-07-03 20:00] VITALS: BP 177/101
== END 2018-07-03 20:08 | disposition home or self-care (01) ==
DX: R06.02 Shortness of breath (principal); G20 Parkinson's disease; I10 Essential (primary) hypertension; E78.5 Hyperlipidemia, unspecified; Z86.711 Personal history of pulmonary embolism
CPT/HCPCS: 84484-ER; 96374; J2930; Q9967

== ENCOUNTER → 2018-07-29 | Outpatient (CLI) | payer OTHER | DX: S06.5X9A Traumatic subdural hemorrhage with loss of consciousness of unspecified duration, initial encounter (principal); G20 Parkinson's disease ==